=== PATIENT | female | born 1965 | race Caucasian/White ===

== ENCOUNTER 2019-02-13 19:01 | Emergency (ER) | payer SELFPAY ==
[2019-02-13] MEDS ORDERED: ONDANSETRON 4 MG/2 ML VIAL IVP STA ×2 (19:16→22:16)
[2019-02-13] MEDS ORDERED: SODIUM CHLORIDE 0.9% 1,000 ML IV STA (19:16)
[2019-02-13 19:38] LABS: BASOPHILS % (AUTO) 0.3 %; EOSINOPHILS % (AUTO) 0.1 %; LYMPHOCYTES # (AUTO) 1.2 10^3/uL (1.5-3.5); LYMPHOCYTES % (AUTO) 11.9 %; MEAN CORPUSCULAR HEMOGLOBIN 23.1 pg (27.0-31.0); MEAN CORPUSCULAR HGB CONC 31.1 g/dL (32.0-36.0); MEAN CORPUSCULAR VOLUME 74.4 fL (81.0-99.0); MEAN PLATELET VOLUME 9.4 fL (7.9-10.8); MONOCYTES # (AUTO) 1.2 10^3/uL (0.0-1.0); NEUTROPHILS # (AUTO) 7.3 10^3/uL (1.5-6.6); PLT - PLATELET COUNT 441 10^3/uL (130-450); RED BLOOD COUNT 4.76 10^6/uL (4.20-5.40); RED CELL DISTRIBUTION WIDTH 22.1 % (12.0-15.0); WHITE BLOOD COUNT 9.7 x10^3/uL (4.8-10.8)
[2019-02-13] MEDS ORDERED: IOVERSOL 320 100 ML VIAL IVP ONE ×2 (19:48→20:22)
[2019-02-13 19:51] LABS: ALBUMIN 3.1 g/dL (3.2-5.5); ALBUMIN/GLOBULIN RATIO 0.6 (1.0-2.2); BILIRUBIN,TOTAL 1.4 mg/dL (0.2-1.0); CALCIUM 9.5 mg/dL (8.5-10.3); CREATININE 0.8 mg/dL (0.4-1.0)
[2019-02-13] MEDS ORDERED: SODIUM CHLORIDE 0.9% 1,000 ML IV ONE ×2 (20:01→22:30)
[2019-02-13 20:19] LABS: PLATELET ESTIMATE, MANUAL NORMAL (130-450,000) (NORMAL); PLATELET MORPHOLOGY NORMAL APPEARANCE (NORMAL)
--- NOTE | 2019-02-13 20:50 | ED Physician Documentation ---
PD HPI ABD PAIN - Stated complaint Stated Complaint: VOMMITING/ABD PX - Chief complaint Chief Complaint: Abd Pain - History obtained from History obtained from: Patient, Family, Friend - History of Present Illness Timing - onset: How many days ago (3) Timing - duration: Days (3) Timing - details: Gradual onset Pain level max: 9 Pain level now: 8 Quality: Cramping, Aching, Pain Location: All over / everywhere Radiation: No: Chest, , Lower back, Left flank, Left shoulder, Right flank, Right shoulder, Upper back Improved by: Vomiting Worsened by: Eating Associated symptoms: Nausea, Vomiting. No: Fever, Hematemesis, Diarrhea, Constipation, Melena, Hematochezia, Dysuria Similar symptoms before: Has not had sx before Recently seen: Not recently seen - Additional information Additional information: 53-year-old female states that she has had abdominal pain for the past several months. Worsening over the past few days and now has been vomiting for the past 3 days. Unable to tolerate p.o. Review of Systems Ten Systems: 10 systems reviewed and negative Constitutional: denies: Fever, Chills Ears: denies: Ear pain Nose: denies: Rhinorrhea / runny nose, Congestion Throat: denies: Sore throat Cardiac: denies: Chest pain / pressure Respiratory: denies: Cough GI: reports: Abdominal Pain, Nausea, Vomiting, Other (States had a mucousy stool few days ago). denies: Diarrhea, Hematemesis, Bloody / black stool : denies: Dysuria, Frequency, Hesitancy Skin: denies: Rash Musculoskeletal: denies: Neck pain, Back pain Neurologic: denies: Headache PD PAST MEDICAL HISTORY - Past Medical History Past Medical History: Yes Other Past Medical History: anemia - Past Surgical History Past Surgical History: No - Allergies Allergies/Adverse Reactions: Allergies Allergy/AdvReac Type Severity Reaction Status Date / Time ibuprofen Allergy Unknown Verified 02/13/19 19:12 - Living Situation Living Situation: reports: With family Living Arrangement: reports: At home - Social History Does the pt smoke?: No Does the pt drink ETOH?: No Does the pt have substance abuse?: No - Family History Family history: reports: Non contributory PD ED PE NORMAL - Vitals Vital signs reviewed: Yes - General General: Alert and oriented X 3, No acute distress, Other (dry lips, appears in pain) - HEENT HEENT: Moist mucous membranes, Pharynx benign, Other (L upper eyelid droop) - Neck Neck: Supple, no meningeal sign - Cardiac Cardiac: RRR - Respiratory Respiratory: No respiratory distress, Clear bilaterally - Abdomen Abdomen: Other (distended, diffusely tender abdomen. reducible umbilical hernia, but tender.) - Back Back: No CVA TTP - Derm Derm: Warm and dry - Extremities Extremities: No edema - Neuro Neuro: Alert and oriented X 3 Results - Vitals Vitals: Vital Signs - 24 hr 02/13/19 02/13/19 02/13/19 19:08 19:56 20:22 Temperature 37.1 C Heart Rate 140 H 125 H 114 H Respiratory 18 17 17 Rate Blood Pressure 123/86 H 120/90 H 126/72 O2 Saturation 96 97 97 02/13/19 02/13/19 02/13/19 20:32 20:33 21:36 Temperature Heart Rate 112 H 112 H 107 H Respiratory 17 17 17 Rate Blood Pressure 126/72 132/82 H 135/85 H O2 Saturation 97 97 97 02/13/19 02/13/19 22:06 22:30 Temperature Heart Rate 120 H 116 H Respiratory 17 17 Rate Blood Pressure 134/79 H 138/88 H O2 Saturation 98 97 Oxygen O2 Source Room air - Labs Labs: Laboratory Tests 02/13/19 02/13/19 02/13/19 19:32 19:32 19:32 WBC 9.7 RBC 4.76 Hgb 11.0 L Hct 35.4 L MCV 74.4 L MCH 23.1 L MCHC 31.1 L RDW 22.1 H Plt Count 441 MPV 9.4 Neut # (Auto) 7.3 H Lymph # (Auto) 1.2 L [place] # (Auto) 1.2 H Eos # (Auto) 0.0 Baso # (Auto) 0.0 Absolute Nucleated RBC 0.00 Nucleated RBC % 0.0 Manual Slide Review Indicated Platelet Estimate NORMAL (130-450,000) Platelet Morphology NORMAL APPEARANCE RBC Morph Micro Appear 1+ MICROCYTOSIS Sodium 132 L Potassium 3.7 Chloride 86 L Carbon Dioxide 25 Anion Gap 21.0 H BUN 13 Creatinine 0.8 Estimated GFR (MDRD) 75 L Glucose 154 H Lactic Acid Calcium 9.5 Total Bilirubin 1.4 H AST 31 ALT 19 Alkaline Phosphatase 82 Total Protein 8.0 Albumin 3.1 L Globulin 4.9 H Albumin/Globulin Ratio 0.6 L Lipase 19 L CA 125 Antigen 1073.7 H 02/13/19 19:48 WBC RBC Hgb Hct MCV MCH MCHC RDW Plt Count MPV Neut # (Auto) Lymph # (Auto) [place] # (Auto) Eos # (Auto) Baso # (Auto) Absolute Nucleated RBC Nucleated RBC % Manual Slide Review Platelet Estimate Platelet Morphology RBC Morph Micro Appear Sodium Potassium Chloride Carbon Dioxide Anion Gap BUN Creatinine Estimated GFR (MDRD) Glucose Lactic Acid 2.9 H Calcium Total Bilirubin AST ALT Alkaline Phosphatase Total Protein Albumin Globulin Albumin/Globulin Ratio Lipase CA 125 Antigen - Rads (name of study) CT abd/pelvis Radiology: Prelim report reviewed, EMP read contemporaneously, See rad report (1. Large lobular partially cystic pelvic mass, which appears to be contiguous with a large left ovary, concerning for ovarian neoplasm. 2. Lower left para- aortic lymph node and large upper retroperitoneal mass, likely metastatic disease. 3. Mild ascites. 4. Mid small bowel obstruction, which appears to be due to fluid-filled small bowel incarcerated in an umbilical hernia. 5. Pleural effusions, right greater than left, and small pericardial effusion. ) PD MEDICAL DECISION MAKING - ED course Complexity details: reviewed results, re-evaluated patient, considered differential, d/w patient ED course: 53-year-old female with what appears to be metastatic ovarian cancer. Very large left ovary, approximately 18 cm. She also has an incarcerated umbilical hernia but this does feel reducible on exam and she feels better after reduction. She appears to have a small bowel obstruction with an elevated lactate. This has been ongoing for 2 to 3 days. Concern for necrotic bowel. Do not feel that is appropriate for this patient to have her surgery performed at a critical access hospital. I feel she would be better served at a larger facility with oncology and gynecology oncology. Will transfer to [facility] for further care. Discussed the case with Dr. Hsieh [place] in [place] who graciously accepts in transfer. This document was made in part using voice recognition software. While efforts are made to proofread this document, sound alike and grammatical errors may occur. Departure - Departure Disposition: 02 Transfer Acute Care Hosp Clinical Impression: Small bowel obstruction, Incarcerated umbilical hernia, Tachycardia Ovarian cancer Qualifiers: Laterality: unspecified laterality Qualified Code(s): C56.9 - Malignant neoplasm of unspecified ovary Disseminated ovarian cancer Qualifiers: Laterality: unspecified laterality Qualified Code(s): C56.9 - Malignant neoplasm of unspecified ovary Condition: Stable
[2019-02-13] MEDS ORDERED: MORPHINE 2 MG/ML CARPUJECT IVP STA ×2 (21:12→22:08)
--- NOTE | 2019-02-13 21:42 | CT Report ---
Reason: diffuse abd pain, vomiting Procedure Date: 02/13/2019 Accession Number: [id number] / [id number] Procedure: CT - Abdomen/Pelvis W CPT Code: FULL RESULT: EXAM: CT ABDOMEN AND PELVIS EXAM DATE: 02/13/2019 08:21 PM. CLINICAL HISTORY: Diffuse abdomen pain. Vomiting. COMPARISONS: None. TECHNIQUE: Routine helical CT imaging was performed through the abdomen and pelvis. IV contrast: 100 cc of Optiray 320. Enteric contrast: No. Reconstructions: Coronal and sagittal. In accordance with CT protocol optimization, one or more of the following dose reduction techniques were utilized for this exam: automated exposure control, adjustment of mA and/or KV based on patient size, or use of iterative reconstructive technique. FINDINGS: Lung Bases: Small pleural effusions, right greater than left. Small pericardial effusion. Liver: Diffusion heterogeneous, with small cyst, largest 1.9 cm Gallbladder/Bile Ducts: Unremarkable. Spleen: Normal. Pancreas: Normal. Adrenal Glands: Normal. Kidneys: Normal. No masses or hydronephrosis. Peritoneal Cavity/Bowel: Lobular mass/adenopathy surrounding the upper aorta and vena cava, 6.4 x 7.3 cm. Lower right paracaval 1.9 x 2.0 cm lymph node. Mild ascites. Umbilical hernia containing fluid filled small bowel loop, with proximal small bowel. Decompressed distal small bowel. Pelvic Organs: Large partially cystic lobular pelvic mass 11.1 x 17.7 cm, which appears to be contiguous with an enlarged left adnexal mass. IUD in the uterus. Unremarkable bladder. Vasculature: No aneurysms or other significant abnormality. Bones: No significant abnormality. Other: None. IMPRESSION: 1. Large lobular partially cystic pelvic mass, which appears to be contiguous with a large left ovary, concerning for ovarian neoplasm. 2. Lower left para-aortic lymph node and large upper retroperitoneal mass, likely metastatic disease. 3. Mild ascites. 4. Mid small bowel obstruction, which appears to be due to fluid-filled small bowel incarcerated in an umbilical hernia. 5. Pleural effusions, right greater than left, and small pericardial effusion. [facility]
[2019-02-13 23:46] VITALS: BP 122/80
== END 2019-02-14 00:08 | disposition short-term general hospital (02) ==
LOC: ED 19:01
DX: K56.609 Unspecified intestinal obstruction, unspecified as to partial versus complete obstruction (principal); K42.0 Umbilical hernia with obstruction, without gangrene; R00.0 Tachycardia, unspecified; C56.9 Malignant neoplasm of unspecified ovary; R18.8 Other ascites
CPT/HCPCS: 36415; 74177; 80053; 83605; 83690; 85025; 86304; 96361; 96374; 96375; 96376; 99285; Q9967

== ENCOUNTER 2019-02-14 00:09 | Outpatient (CLI) | payer SELFPAY | END 2019-02-14 00:10 | disposition short-term general hospital (02) | LOC: EMS 00:09 | PROVIDERS: ATTEND Surgery | DX: K56.609 Unspecified intestinal obstruction, unspecified as to partial versus complete obstruction (principal) | CPT/HCPCS: A0425; A0426 ==

== ENCOUNTER 2019-05-09 11:21 | Outpatient (CLI) | payer MEDICAID | END 2019-05-09 11:22 | disposition short-term general hospital (02) | LOC: EMS 11:21 | PROVIDERS: ATTEND Surgery | DX: R10.9 Unspecified abdominal pain (principal) | CPT/HCPCS: A0425; A0427; A0999 ==